=== PATIENT | male | born 1995 | race American Indian/Alaskan Native ===

== ENCOUNTER 2020-02-21 01:00 | Emergency (ER) | payer SELFPAY | END 2020-02-21 02:21 | disposition left against medical advice (07) | LOC: ED 01:00 | DX: F32.9 Major depressive disorder, single episode, unspecified (principal); Z53.21 Procedure and treatment not carried out due to patient leaving prior to being seen by health care provider ==

== ENCOUNTER 2021-03-05 22:17 | Emergency (ER) | payer MEDICAID ==
[2021-03-05] MEDS ORDERED: oxyCODONE /ACETAMINOPHEN 5-325MG TAB PO ONE (22:57)
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
[2021-03-06 06:10] VITALS: BP 106/71
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
== END 2021-03-06 12:00 | disposition hospice, inpatient (51) ==
LOC: ED 22:17 → EEVIPCON 22:17 → ED 03-06 12:00
DX: S02.32XA Fracture of orbital floor, left side, initial encounter for closed fracture (principal); W22.8XXA Striking against or struck by other objects, initial encounter; Y93.89 Activity, other specified; Y92.89 Other specified places as the place of occurrence of the external cause; Y99.8 Other external cause status
CPT/HCPCS: 70450; 70480; 96365; 99285; J0690